=== PATIENT | male | born 1980 | race African-American/Black ===

== ENCOUNTER 2019-09-21 02:07 | Emergency (ER) | payer OTHER ==
[~2019-09-21] VITALS: Ht 177.8 cm; Wt 72.6 kg
[2019-09-21 03:03] LABS: AMP/METHAMP Negative (Negative); BARBITURATES Negative (Negative); BENZODIAZEPINES Negative (Negative); COCAINE POSITIVE (Negative); METHADONE Negative (Negative); OPIATES Negative (Negative); PCP Negative (Negative)
[2019-09-21] MEDS ORDERED: NAPROSYN500 MG PO (03:34)
[2019-09-21] MEDS ORDERED: MEDROLDOSEPACK PO (03:34)
[2019-09-21 04:05] VITALS: BP 130/82
== END 2019-09-21 04:06 | disposition home or self-care (01) ==
LOC: ER 02:07
PROVIDERS: Emergency Medicine
DX: M25.511 Pain in right shoulder (principal); F17.210 Nicotine dependence, cigarettes, uncomplicated